=== PATIENT | male | born 1995 | race Caucasian/White ===

== ENCOUNTER 2025-09-06 09:07 | Inpatient (IN) | payer OTHER, SELFPAY ==
[2025-09-06] VITALS (8 sets, daily range): BP systolic 112–164; BP diastolic 72–87; PULSE 68–110; TEMP 37.1–37.7; O2SAT 96–98; BMI 46.5; BMI 45.1
--- NOTE | 2025-09-06 09:25 | ED_ITS ---
HPI HPI - General Adult General Chief complaint: Abdominal Pain Stated complaint: ABDOMINAL PAIN Time Seen by Provider: 09/06/25 09:16 Mode of arrival: walk-in History of Present Illness HPI narrative: 30-year-old male presented to the emergency department for nausea and vomiting and abdominal pain. He has been feeling this way for the past 2 days. He states that his stomach has been feeling off and he has been nauseous and had vomiting. No significant hematemesis. He has had minimal amounts of diarrhea without blood as well. No family members at home are ill and he has not been around any ill coworkers. Related Data Home Medications ?Medication ?Instructions ?Recorded ?Confirmed No Known Home Medications 09/06/2508/16 Allergies Allergy/AdvReac Type Severity Reaction Status Date / Time No Known Drug Allergies Allergy Verified 09/06/25 09:12 Review of Systems ROS Narrative A ten point review of systems is negative except as noted above. [facility] Medical History (Updated 09/06/25 @ 14:15 by Aileen Barroso MD) Gout ?M10.9 - Gout, unspecified (ICD-10) Gout ?M10.9 - Gout, unspecified (ICD-10) Social History Little interest or pleasure in doing things: not at all Feeling down, depressed, or hopeless: not at all Exam Narrative Exam Narrative: Nurses note and vital signs reviewed General:The patient appears in no apparent distress. Skin:Warm, dry, no pallor noted.There is no rash noted. Head:Normocephalic, atraumatic Eye: Normal conjunctiva, no drainage Ears, Nose, Mouth, and Throat: oral mucosa is moist. Nares patent. Cardiovascular:Regular Rate and Rhythm Respiratory:Patient is in no distress, no accessory muscle use, lungs are clear to auscultation, no wheezing, rales or rhonchi Back:non-tender GI: Obese, soft, nondistended. He has minimal tenderness down the central part of his abdomen. No rebound or guarding. No masses. Musculoskeletal: The patient has no evidence of calf tenderness, no pitting edema, symmetrical pulses noted bilaterally Neurological:A&O, normal speech Psychiatric:Cooperative Constitutional Vital Signs, click to edit/add: Last Vital Signs Temp 99.1 F 09/06/25 09:13 Pulse 95 H 09/06/25 13:27 Resp 16 09/06/25 13:27 BP 112/72 09/06/25 13:27 Pulse Ox 98 09/06/25 13:27 O2 Del Method Room Air 09/06/25 13:27 Course Vital Signs Vital signs: Vital Signs Temperature 99.1 F 09/06/25 09:13 Pulse Rate 110 H 09/06/25 09:13 Respiratory Rate 20 09/06/25 09:13 Blood Pressure 142/83 H 09/06/25 09:13 Pulse Oximetry 98 09/06/25 09:13 Oxygen Delivery Method Room Air 09/06/25 09:13 Temperature 99.1 F 09/06/25 09:13 Pulse Rate 95 H 09/06/25 13:27 Respiratory Rate 16 09/06/25 13:27 Blood Pressure 112/72 09/06/25 13:27 Pulse Oximetry 98 09/06/25 13:27 Oxygen Delivery Method Room Air 09/06/25 13:27 Medical Decision Making MDM Narrative Medical decision making narrative: Nephritis is found on CAT scan per radiologist. Case discussed with Dr. Barroso who recommended consultation with nephrology. I spoke to the internal salesperson at [facility] who recommends the patient be admitted here for IV antibiotics and monitoring of his creatinine. The internal salesperson suggest that this is most likely infectious. Treatment diagnosis and disposition were discussed with the patient. Differential Diagnosis Differential Diagnosis: Gastroenteritis, nephritis, pyelonephritis, UTI, dehydration Lab Data Lab results reviewed: Yes I reviewed the patient's lab results Labs: Lab Results 09/06/25 09/06/25 Range/Units 09:25 09:34 WBC 15.0 H (4.0-11.0) 10^3/uL RBC 4.80 (4.70-6.10) 10^6/uL Hgb 14.3 (14.0-18.0) g/dL Hct 41.8 L (42.0-54.0) % MCV 87.1 (80.0-94.0) fL MCH 29.8 (25.9-34.0) pg MCHC 34.2 (29.9-35.2) g/dL RDW 13.2 (11.0-15.0) % Plt Count 164 (150-450) 10^3/uL MPV 11.5 (9.5-13.5) fL Seg Neuts % (Manual) 59.0 (43.0-75.0) Band Neutrophils % 7.0 H (0-5) % Lymphocytes % (Manual) 15.0 L (20.5-60.0) % Monocytes % (Manual) 19.0 H (1.7-12.0) % Eosinophils % (Manual) 0.0 L (0.9-7.0) % Basophils % (Manual) 0.0 L (0.2-2.0) % Neutrophils # (Manual) 8.85 H (1.4-6.5) 10^3/uL Band Neutrophils # 1.1 H (0.0-0.3) 10^3/uL Lymphocytes # (Manual) 2.25 (1.20-3.80) 10^3/uL Monocytes # (Manual) 2.85 H (0.30-0.80) 10^3/uL Eosinophils # (Manual) 0.00 (0.00-0.70) 10^3/uL Basophils # (Manual) 0.00 (0.00-0.10) 10^3/uL Sodium 136 (136-145) mmol/L Potassium 3.9 (3.5-5.1) mmol/L Chloride 96 L (98-107) mmol/L Carbon Dioxide 28.3 (21.0-32.0) mmol/L Anion Gap 15.6 BUN 17.0 (7.0-18.0) mg/dL Creatinine 1.56 H (0.70-1.30) mg/dL Est GFR ( Amer) >60 (>=60 mL/min/1.73m^2) Est GFR (Non-Af Amer) 53 L (>=60 mL/min/1.73m^2) BUN/Creatinine Ratio 10.9 Glucose 114 H (74-106) mg/dL Calcium 9.8 (8.5-10.1) mg/dL Total Bilirubin 1.1 H (0.2-1.0) mg/dL Direct Bilirubin 0.3 H (0.0-0.2) mg/dL AST 18 (15-37) U/L ALT 35 (16-63) U/L Alkaline Phosphatase 91 (46-116) U/L Total Protein 8.4 H (6.4-8.2) g/dL Albumin 3.4 (3.4-5.0) g/dL Globulin 5.0 g/dL Albumin/Globulin Ratio 0.7 Amylase 27 (25-115) U/L Lipase 12.0 L (16.0-77.0) U/L Urine Color Lt. yellow (YELLOW) Urine Clarity Clear (CLEAR) Urine pH 7.5 (5.0-9.0) Ur Specific [place] 1.010 (1.005-1.025) Urine Protein 100 A (NEG/TRACE) mg/dL Urine Glucose (UA) Negative (NEGATIVE) mg/dL Urine Ketones Negative (NEGATIVE) mg/dL Urine Occult Blood Moderate A (NEGATIVE) Urine Nitrite Negative (NEGATIVE) Urine Bilirubin Negative (NEGATIVE) Urine Urobilinogen 4.0 A (0.2-1.0) EU/dL Ur Leukocyte Esterase Small A (NEGATIVE) Urine RBC 10-20 A (0-2) #/HPF Urine WBC 10-20 A (NONE SEEN) #/HPF Ur Squamous Epith Cells Rare (NONE/RARE) #/LPF Urine Crystals None seen (None Seen) #/HPF Urine Bacteria Small A (NONE SEEN) #/HPF Urine Casts None seen (NONE SEEN) #/LPF Urine Mucus None seen (NONE SEEN) Ur Culture Indicated? Yes-[facility] [place] Imaging Data CT scan - abdomen: Radiologist's impression: ITS Impressions Abdomen/Pelvis CT 09/06/25 10:25 IMPRESSION: There is heterogeneous cortical hypoenhancement of the renal cortices right greater than left suspicious for acute nephritis. There is accompanying perinephric fat stranding right greater than left. There is wall thickening and fat stranding along the bladder suggesting cystitis with edema along the proximal ureters. Impression dictated by: Ernie Claros M.D. 09/06/2025 12:55 PM Dictation Location: [place] [address] Electronically authenticated by: [id number] Y Date: 09/06/2025 12:55 Discharge Plan Discharge Chief Complaint: Abdominal Pain Clinical Impression: Nephritis Patient Disposition: Admitted as Observation Time of Disposition Decision: 14:11 Condition: Fair
[2025-09-06] MEDS: 0.9 % SODIUM CHLORIDE 1,000 ML 1000 ML IV ×3 (09:40→22:03)
[2025-09-06 09:42] LABS: Hematocrit 41.8 % (42.0-54.0); Hemoglobin 14.3 g/dL (14.0-18.0); Mean Corpuscular HGB Conc 34.2 g/dL (29.9-35.2); Mean Corpuscular Hemoglobin 29.8 pg (25.9-34.0); Mean Corpuscular Volume 87.1 fL (80.0-94.0); Platelet Count 164 10^3/uL (150-450); Red Blood Count 4.80 10^6/uL (4.70-6.10); White Blood Count 15.0 10^3/uL (4.0-11.0)
--- NOTE | 2025-09-06 09:48 | PC.NURSE ---
aware of need for UA, unable to go at this time.
[2025-09-06 10:00] LABS: Alanine Aminotransferase 35 U/L (16-63); Albumin Globulin Ratio 0.7; Albumin Level 3.4 g/dL (3.4-5.0); Alkaline Phosphatase 91 U/L (46-116); Amylase 27 U/L (25-115); Anion Gap 15.6; Aspartate Amino Transferase 18 U/L (15-37); Band Neutrophils Absolute 1.1 10^3/uL (0.0-0.3); Basophils Abs Manual 0.00 10^3/uL (0.00-0.10); Basophils Percent Manual 0.0 % (0.2-2.0); Blood Urea Nitrogen 17.0 mg/dL (7.0-18.0); Calcium 9.8 mg/dL (8.5-10.1); Carbon Dioxide 28.3 mmol/L (21.0-32.0); Chloride 96 mmol/L (98-107); Eosinophils Absolute Manual 0.00 10^3/uL (0.00-0.70); Eosinophils Percent Manual 0.0 % (0.9-7.0); Estimated GFR (African America >60 (>=60 mL/min/1.73m^2); Estimated GFR (Non-African Ame 53 (>=60 mL/min/1.73m^2); Globulin 5.0 g/dL; Glucose 114 mg/dL (74-106); Lipase 12.0 U/L (16.0-77.0); Lymphocytes Absolute Manual 2.25 10^3/uL (1.20-3.80); Lymphocytes Percent Manual 15.0 % (20.5-60.0); Monocytes Absolute Manual 2.85 10^3/uL (0.30-0.80); Monocytes Percent Manual 19.0 % (1.7-12.0); Potassium 3.9 mmol/L (3.5-5.1); Segmented Neut Absolute Manual 8.85 10^3/uL (1.4-6.5); Segmented Neutrophils % Manual 59.0 (43.0-75.0); Sodium 136 mmol/L (136-145); Total Protein 8.4 g/dL (6.4-8.2)
--- NOTE | 2025-09-06 10:25 | CT_ITS ---
[address] [address] Patient Name: AMELIA POLLARD MRN: [id number] date: 1995 Sex: M Assigned Patient Location: ER Current Patient Location: .[facility] Accession/Order Number: [id number] Exam Date: 09/06/2025 11:17 Report Date: 09/06/2025 12:55 At the request of: VINICIUS PAREKH MD Procedure: CT abdomen pelvis w con CT abdomen pelvis w con 09/06/2025 11:23 AM SIGNS AND SYMPTOMS: ^Diffuse abdominal pain, vomiting, fever TECHNIQUE: Multidetector ct axial images of the abdomen and pelvis were obtained with IV contrast. Multiplanar reformats were performed and reviewed to further define anatomy and possible pathology. CT was performed with one or more of the following dose reduction techniques: Automated exposure control, adjustment of the mA and/or kV according to patient size, or use of iterative reconstruction technique. COMPARISON: None. FINDINGS: Lower Chest: Within normal limits. ABDOMEN: Liver: Within normal limits. Bile Ducts: Normal caliber. Gallbladder: No calcified gallstones. Normal caliber wall. Pancreas: Within normal limits. Spleen: Within normal limits. Adrenals: Within normal limits. Kidneys: There is heterogeneous cortical hypoenhancement of the renal cortices right greater than left suspicious for acute nephritis. There is accompanying perinephric fat stranding right greater than left. Pelvis: Reproductive Organs: No pelvic masses. Ureters: Edema is noted along the ureters proximally. Bladder: There is bladder wall thickening with accompanying edema suggesting cystitis. Bowel: Normal caliber. There is a normal appendix in the right lower quadrant. Mesenteric Lymph Nodes: No enlarged mesenteric lymph nodes. Peritoneum: No ascites or free air, no fluid collection. Vessels: Atherosclerotic changes within normal limits Retroperitoneum: Within normal limits. Abdominal Wall: Within normal limits. Bones: Degenerative changes are noted in the thoracolumbar spine CT/CT abdomen pelvis w con IMPRESSION: There is heterogeneous cortical hypoenhancement of the renal cortices right greater than left suspicious for acute nephritis. There is accompanying perinephric fat stranding right greater than left. There is wall thickening and fat stranding along the bladder suggesting cystitis with edema along the proximal ureters. Impression dictated by: Ernie Claros M.D. 09/06/2025 12:55 PM Dictation Location: [place] [address] Electronically authenticated by: [id number] Y Date: 09/06/2025 12:55
[2025-09-06 10:29] LABS: Glucose Urine UA NEGATIVE (NEGATIVE)
[2025-09-06 10:37] LABS: Crystals Seen? None Seen #/HPF (None Seen)
[2025-09-06 10:38] LABS: Cast Seen? NONE SEEN #/LPF (NONE SEEN); Urine Culture Indicated YES-FRMC
[2025-09-06] MEDS: DICYCLOMINE HCL 20 MG/2 ML VIAL IM (10:53)
--- NOTE | 2025-09-06 14:14 | PM.IMHP1 ---
Internal Medicine - H&P: HPI History of Present Illness Chief complaint: ABDOMINAL PAIN Narrative: This is.-year-old male with no past medical history presents today with abdominal pain over the last 4 days. History obtained from the patient, ED staff, as well as chart review. Patient states that 4 days ago, he started having abdominal pain described as bloating and pressure later on became cramping which was coming and going, epigastric in location. He thought that this was all a stomach bug however he continued to have chills along with fatigue. The pain was nonradiating out of failure and not associated with certain activities and not aggravated by food and he does not recall any relieving factors. He did report having chills with a fever 100.3 at home. He denies any diarrhea but states that he has nausea and dry heaving and he had to drink water to kind of lubricate his dry heaving. He did have multiple episodes of vomiting as well. He decided to come to the ED today because of the worsening symptoms. He denies to me any dysuria or burning urination or hematuria or flank pain. Denies any diarrhea. Here in the ED, patient met sepsis criteria with tachycardia as well as leukocytosis and UA was positive. CRP was 36. Lactic acid was normal. He was only tachycardic but he was not hypotensive. He was not febrile and he was saturating 98% on room air. CMP showed BUN of [address] abdomen pelvis with contrast showed heterogeneous cortical hypoenhancement of the renal cortices right greater than left suspicious for acute nephritis complaining perinephric fat stranding right greater than left. Wall thickening and fat stranding along the bladder suggesting cystitis with edema along the proximal ureters ED reach out to nephrology at [facility] who cleared the patient to be admitted here to [facility] and believe that this more of an infectious etiology patient to be admitted under hospital service for further workup and management Review of Systems ROS Status of ROS 10 or more systems reviewed and unremarkable except as noted in history and below [facility] Medical History (Updated 09/06/25 @ 14:15 by Aileen Barroso MD) Gout ?M10.9 - Gout, unspecified (ICD-10) Gout ?M10.9 - Gout, unspecified (ICD-10) Social History Little interest or pleasure in doing things: not at all Feeling down, depressed, or hopeless: not at all Meds Home Medications and Allergies Home Medications ?Medication ?Instructions ?Recorded ?Confirmed ?Type No Known Home Medications 09/06/25 09/06/25 History Allergies Allergy/AdvReac Type Severity Reaction Status Date / Time No Known Drug Allergies Allergy Verified 09/06/25 09:12 Exam Narrative Exam Narrative: General:The patient appears in no apparent distress. He is pleasant and cooperative. Skin:Warm, dry, no pallor noted.There is no rash noted. Head:Normocephalic, atraumatic Eye: Normal conjunctiva, no drainage Cardiovascular:Regular Rate and Rhythm, normal S1-S2, no murmurs Respiratory:Patient is in no distress, no accessory muscle use, lungs are clear to auscultation, no wheezing, rales or rhonchi Back:non-tender GI: Obese, soft, nondistended. Epigastric tenderness is noted. No rebound or guarding. No masses. No signs of acute abdomen. There is no CVA tenderness bilaterally Musculoskeletal: The patient has no evidence of calf tenderness, no pitting edema, symmetrical pulses noted bilaterally Neurological:A&O, normal speech Constitutional Vital Signs, click to edit/add: Last Vital Signs Temp 99.1 F 09/06/25 09:13 Pulse 95 H 09/06/25 13:27 Resp 16 09/06/25 13:27 BP 112/72 09/06/25 13:27 Pulse Ox 98 09/06/25 13:27 O2 Del Method Room Air 09/06/25 13:27 Internal Medicine - H&P: Reslt Labs Labs: Short CBC 09/06/25 Range/Units 09:34 WBC 15.0 H (4.0-11.0) 10^3/uL Hgb 14.3 (14.0-18.0) g/dL Hct 41.8 L (42.0-54.0) % Plt Count 164 (150-450) 10^3/uL BMP 09/06/25 09:34 Sodium 136 Potassium 3.9 Chloride 96 L Carbon Dioxide 28.3 BUN 17.0 Creatinine 1.56 H Glucose 114 H Calcium 9.8 Liver Function 09/06/25 Range/Units 09:34 Total Bilirubin 1.1 H (0.2-1.0) mg/dL Direct Bilirubin 0.3 H (0.0-0.2) mg/dL AST 18 (15-37) U/L ALT 35 (16-63) U/L Alkaline Phosphatase 91 (46-116) U/L Albumin 3.4 (3.4-5.0) g/dL Urine 09/06/25 Range/Units 09:25 Urine Color Lt. yellow (YELLOW) Urine Clarity Clear (CLEAR) Urine pH 7.5 (5.0-9.0) Ur Specific [place] 1.010 (1.005-1.025) Urine Protein 100 A (NEG/TRACE) mg/dL Urine Glucose (UA) Negative (NEGATIVE) mg/dL Assessment and Plan Assessment and Plan (1) Nephritis: (2) Sepsis: Plan Sepsis secondary to Nephritis, inability to tolerate PO antibiotics, needing IV antibiotics [place] in the setting of hypoperfusion from sepsis and pre-renal azotemia/Dehydration from decreased oral intake and vomiting -Admit pt to medical floor with telemetry -Start Ceftriaxone 2 grams q24 hours IV -Adjust antibiotics according to urine and blood cultures -Tylenol 650 mg po q8hrs PRN for pain -Compazine 5 mg q6hrs prn for nausea/vomiting -Full code -HSQ for DVT PPx -I ordered another 1 liter NS bolus, then will start pt on LR 100 ml/hr for a total of 1 liter -I ordered EKG and CXR -Discussed the plan with the pt, answered his questions
--- NOTE | 2025-09-06 14:17 | ECG_ITS ---
[facility] Test Date: 2025-09-06 Pat Name: AMELIA POLLARD Department: Room: 2201 Gender: Male Paster Operator: : 1995 Requested By: [id number] Order Number: [id number] Cynthia MD: BETO LAGUERRE M.D. Measurements Intervals [place] Rate: 86 P: 51 CO: 163 QRS: 40 QRSD: 94 T: 48 QT: 338 QTc: 406 Interpretive Statements SINUS RHYTHM POSSIBLE LEFT ATRIAL ENLARGEMENT [-0.1mV P WAVE IN V1/V2] POSSIBLE RIGHT VENTRICULAR CONDUCTION DELAY [RSR (QR) IN V1/V2] Borderline ECG No previous ECG available for comparison Electronically Signed On 09-07-2025 12:24:23 EDT by BETO LAGUERRE M.D.
[2025-09-06 14:37] LABS: Lactate/Lactic Acid 1.5 mmol/L (0.4-2.0)
[2025-09-06] MEDS: ACETAMINOPHEN 325 MG TABLET 650 MG PO (20:15)
--- OUTSIDE RECORDS SUMMARY | 2025-09-06 20:34 | XMS_ITS | Continuity of Care Document ---
Author Organization [facility] Address [address] [place] [address] Phone Care Team Providers Care Retoucher Photoengraving Name Role Phone Praveen Monsalve DO Attending Provider Care Teams Patient Care Team Team Status: Inactive Member Role/Relationship Status Dates Praveen Monsalve DO Attending Provider Active S tart: September 06, 2025 End: September 06, 2025 Chief Complaint and Reason for Visit Chief Complaint Admit Date Unknown September 06, 2025 9 :25am Social History Smoking Status Unknown if ever smoked Observation Status Observation Response Date of Response Legal Sex Male (finding) Sex Assigned At 1994 Procedures Procedure Date Performed Status Urine Culture September 06, 2025 active Advance Directives Advance Directive Response Recorded Date/ Time Advance Directives No March 21, 2018 3:09pm Insurance Providers Guarantor Garfield Roblespkins Address [address] [place] [phone] Info.Home Phone: Payer Group Member ID Coverage Type Subscriber Relationship to Subscriber Effective Date Expiration Date Remedios MCNAMARA Id: [id number] chapito Id: [id number] [facility] [place] [address] Home Phone: Encounters Encounter Location(s) Arrival/Admit Date Discharge/Departure Date Discharge/Departure Disposition Provider(s) Departed Referred -[facility] September 06, 2025 9:25am September 06, 2025 9:26am Discharged to home care or self care (routine discharge) Praveen Katko , D DO Plan of Treatment Future Tests Future scheduled test information is unavailable Pending Tests Test Name Ordered Date Scheduled Date Urine Culture September 06, 2025 9:25am Future Visits Future appointment information is unavailable Future Procedures Procedure Name Ordered Date Scheduled Date Urine Culture September 06, 2025 12:27pm Octob er 2024 9:25am Future Medications Future medication information is unavailable Patient Instructions Patient instructions are unavailable
[2025-09-06] MEDS: HYDROMORPHONE HCL 1 MG/ML CARTRIDGE 0.5 MG IVP (23:51)
[2025-09-07] VITALS (8 sets, daily range): BP systolic 107–162; BP diastolic 77–99; PULSE 86–99; TEMP 37.1–39; O2SAT 94–98
[2025-09-07] MEDS: ACETAMINOPHEN 325 MG TABLET 650 MG PO ×3 (04:15→20:37)
[2025-09-07 05:53] LABS: Hematocrit 37.3 % (42.0-54.0); Hemoglobin 12.6 g/dL (14.0-18.0); Immature Granulocytes Abs Auto 0.10 10^3/uL (0.00-0.03); Immature Granulocytes Pct Auto 0.8 % (0.0-0.5); Lymphocytes Absolute Auto 1.3 10^3/uL (1.2-3.8); Mean Corpuscular HGB Conc 33.8 g/dL (29.9-35.2); Mean Corpuscular Hemoglobin 29.6 pg (25.9-34.0); Mean Corpuscular Volume 87.6 fL (80.0-94.0); Platelet Count 151 10^3/uL (150-450); Red Blood Count 4.26 10^6/uL (4.70-6.10); White Blood Count 12.4 10^3/uL (4.0-11.0)
[2025-09-07 06:12] LABS: Alanine Aminotransferase 44 U/L (16-63); Albumin Globulin Ratio 0.6; Albumin Level 2.7 g/dL (3.4-5.0); Alkaline Phosphatase 86 U/L (46-116); Anion Gap 15.4; Aspartate Amino Transferase 17 U/L (15-37); Blood Urea Nitrogen 18.0 mg/dL (7.0-18.0); Calcium 8.5 mg/dL (8.5-10.1); Carbon Dioxide 23.8 mmol/L (21.0-32.0); Chloride 99 mmol/L (98-107); Estimated GFR (African America >60 (>=60 mL/min/1.73m^2); Estimated GFR (Non-African Ame 59 (>=60 mL/min/1.73m^2); Globulin 4.5 g/dL; Glucose 121 mg/dL (74-106); Magnesium 1.9 mg/dL (1.8-2.4); Potassium 3.2 mmol/L (3.5-5.1); Sodium 135 mmol/L (136-145); Total Protein 7.2 g/dL (6.4-8.2)
[2025-09-07] MEDS: HYDROMORPHONE HCL 1 MG/ML CARTRIDGE 0.5 MG IVP (06:34)
[2025-09-07] MEDS: HEPARIN SODIUM (PORCINE) 5,000 UNIT/ML VIAL 5000 UNIT SUBQ ×2 (08:28→20:37)
--- NOTE | 2025-09-07 10:10 | CM.NOTE ---
Rounds made with Dr. Pedro, pt inpatient status. Discussed with pt diagnosis, lab work and plan of care.
[2025-09-07] MEDS: 0.9 % SODIUM CHLORIDE 250 ML 10 ML IV (10:56)
--- NOTE | 2025-09-07 12:24 | PM.PN ---
Progress Note: Subjective Subjective Interval history: Patient was seen and evaluated at bedside, he reports feeling better today however he did have a fever 100.4 F earlier this morning, WBC slightly downtrending. Reports that his appetite is coming back now and feeling a bit better and able to keep stuff down. Remains on IV antibiotics. Pending cultures. Exam Narrative Exam Narrative: Const General: cooperative HEENT Normal oropharyngeal mucosa without any ulcers or exudates Eyes: Conjunctiva normal Pulmonary Auscultation: clear to auscultation , no crackles, no wheezes Cardiovascular Rate: normal rate Rhythm: regular rhythm Heart Sounds: S1 normal, S2 normal and no murmurs GI Inspection: non-distended Palpation: soft, not firm and nontender. No rigidity or rebound. Deferred Neuro General: alert, awake and oriented x3. No obvious new focal deficit Musculoskeletal: normal range of motion Extrem General: no cyanosis, no pedal edema Psych Appearance: appropriate affect. Grossly normal Constitutional Vital Signs, click to edit/add: Last Vital Signs Temp 98.8 F 09/07/25 08:33 Pulse 99 H 09/07/25 08:33 Resp 16 09/07/25 03:58 BP 155/96 H 09/07/25 08:33 Pulse Ox 95 09/07/25 08:33 O2 Del Method Room Air 09/07/25 08:33 Progress Note: Objective Labs Labs: Short CBC 09/07/25 Range/Units 05:23 WBC 12.4 H (4.0-11.0) 10^3/uL Hgb 12.6 L (14.0-18.0) g/dL Hct 37.3 L (42.0-54.0) % Plt Count 151 (150-450) 10^3/uL BMP 09/07/25 05:23 Sodium 135 L Potassium 3.2 L Chloride 99 Carbon Dioxide 23.8 BUN 18.0 Creatinine 1.42 H Glucose 121 H Calcium 8.5 Liver Function 09/07/25 Range/Units 05:23 Total Bilirubin 0.8 (0.2-1.0) mg/dL AST 17 (15-37) U/L ALT 44 (16-63) U/L Alkaline Phosphatase 86 (46-116) U/L Albumin 2.7 L (3.4-5.0) g/dL Progress Note: A&P Assessment and Plan (1) Nephritis: (2) Sepsis: Plan Sepsis secondary to acute pyelonephritis, inability to tolerate PO antibiotics, needing IV antibiotics L[place]ORE in the setting of hypoperfusion from sepsis and pre-renal azotemia/volume depletion from decreased oral intake and vomiting - Still febrile this a.m., WBC slightly downtrending -Continue ceftriaxone 2 g IV every 24 hours - Pending final cultures urine and blood -Would continue further IV hydration as directed with LR ? Pain control and antiemetics as needed as directed -DVT prophylaxis as directed Discussed with patient at bedside, all question answered, patient in agreement with above plan
[2025-09-07] MEDS: PROCHLORPERAZINE 10 MG/2 ML VIAL 5 MG IV (16:10)
[2025-09-07] MEDS: POTASSIUM CHLORIDE 10 MEQ ER TABLET 30 MEQ PO (20:37)
[2025-09-08] MEDS: PROCHLORPERAZINE 10 MG/2 ML VIAL 5 MG IV (01:17)
[2025-09-08 03:58] VITALS: BP 161/99; PULSE 99; TEMP 37.2; O2SAT 96
[2025-09-08 06:39] LABS: Hematocrit 36.4 % (42.0-54.0); Hemoglobin 12.2 g/dL (14.0-18.0); Immature Granulocytes Abs Auto 0.18 10^3/uL (0.00-0.03); Immature Granulocytes Pct Auto 1.5 % (0.0-0.5); Lymphocytes Absolute Auto 1.9 10^3/uL (1.2-3.8); Mean Corpuscular HGB Conc 33.5 g/dL (29.9-35.2); Mean Corpuscular Hemoglobin 29.5 pg (25.9-34.0); Mean Corpuscular Volume 87.9 fL (80.0-94.0); Platelet Count 167 10^3/uL (150-450); Red Blood Count 4.14 10^6/uL (4.70-6.10); White Blood Count 11.7 10^3/uL (4.0-11.0)
[2025-09-08 06:41] LABS: Anion Gap 13.8; Blood Urea Nitrogen 14.0 mg/dL (7.0-18.0); Calcium 8.7 mg/dL (8.5-10.1); Carbon Dioxide 26.0 mmol/L (21.0-32.0); Chloride 103 mmol/L (98-107); Estimated GFR (African America >60 (>=60 mL/min/1.73m^2); Estimated GFR (Non-African Ame >60 (>=60 mL/min/1.73m^2); Glucose 97 mg/dL (74-106); Magnesium 2.2 mg/dL (1.8-2.4); Potassium 3.8 mmol/L (3.5-5.1); Sodium 139 mmol/L (136-145)
[2025-09-08 07:44] VITALS: BP 145/83; PULSE 90; TEMP 36.6; O2SAT 97
[2025-09-08] MEDS: HEPARIN SODIUM (PORCINE) 5,000 UNIT/ML VIAL 5000 UNIT SUBQ ×2 (08:25→20:59)
--- NOTE | 2025-09-08 10:20 | P.IMPN_ITS ---
Progress Note: A&P Assessment and Plan (1) Nephritis: (2) Sepsis: Qualifiers: Sepsis type: sepsis due to unspecified organism Plan Sepsis secondary to acute pyelonephritis, inability to tolerate PO antibiotics, needing IV antibiotics L[place] in the setting of hypoperfusion from sepsis and pre-renal azotemia/volume depletion from decreased oral intake and vomiting - Still febrile past 24 hours, however WBC and symptoms continue to improve -Continue ceftriaxone 2 g IV every 24 hours - Awaiting final cultures urine and blood, if afebrile tomorrow am will plan to d/c with 5 day course levofloxacin for pyelonephritis and urology follow up -Would continue further IV hydration as directed with LR ? Pain control and antiemetics as needed as directed -DVT prophylaxis as directed Discussed with patient at bedside, all question answered, patient in agreement with above plan Internal Medicine - PN: Subj Subjective Interval history: Feels back to baseline, no abdominal pain and able to eat. Did spike high grade fevers overnight, Tmax 24 hours 102 F Exam Narrative Exam Narrative: General: cooperative and tired appearing Orientation: alert, awake and oriented x3 Head: normal to inspection Neck: normal visual inspection Cardio: no JVD, regular rate, regular rhythm Chest palpation & inspection: normal inspection of the chest Resp Effort & Inspection: normal respiratory effort Abd: soft, non-tender, non-distended Extremities: Warm well perfused, no edema Constitutional Vital Signs, click to edit/add: Last Vital Signs Temp 98 F 09/08/25 07:44 Pulse 90 09/08/25 07:44 Resp 20 09/08/25 07:44 BP 145/83 H 09/08/25 07:44 Pulse Ox 97 09/08/25 07:44 O2 Del Method Room Air 09/08/25 07:44 Internal Medicine - PN: Obj Da Labs Labs: Laboratory Results - last 24 hr 09/08/25 05:57 WBC 11.7 H RBC 4.14 L Hgb 12.2 L Hct 36.4 L MCV 87.9 MCH 29.5 MCHC 33.5 RDW 13.6 Plt Count 167 MPV 12.3 Neut % (Auto) 64.5 Lymph % (Auto) 15.9 L [place] % (Auto) 16.7 H Eos % (Auto) 0.9 Baso % (Auto) 0.5 Neut # (Auto) 7.6 H Lymph # (Auto) 1.9 [place] # (Auto) 2.0 H Eos # (Auto) 0.1 Baso # (Auto) 0.1 Abs Immat Gran (auto) 0.18 H Imm/Tot Granulo (auto) 1.5 H Sodium 139 Potassium 3.8 Chloride 103 Carbon Dioxide 26.0 Anion Gap 13.8 BUN 14.0 Creatinine 1.31 H Est GFR ( Amer) >60 Est GFR (Non-Af Amer) >60 BUN/Creatinine Ratio 10.7 Glucose 97 Calcium 8.7 Magnesium 2.2
[2025-09-08 15:24] VITALS: BP 156/97; PULSE 96; TEMP 36.9; O2SAT 97
[2025-09-08 20:00] VITALS: BP 160/90; PULSE 106; TEMP 36.8; O2SAT 97
[2025-09-09] VITALS: BP 166/110; PULSE 108; TEMP 37; O2SAT 97
[2025-09-09] MEDS: METOPROLOL TARTRATE 25 MG TABLET PO ×2 (01:38→08:15)
[2025-09-09 03:52] VITALS: BP 159/91; PULSE 84; TEMP 36.9; O2SAT 96
[2025-09-09 07:14] VITALS: BP 132/86; PULSE 82; TEMP 37.1; O2SAT 97
[2025-09-09] MEDS: HEPARIN SODIUM (PORCINE) 5,000 UNIT/ML VIAL 5000 UNIT SUBQ (08:14)
[2025-09-09 11:10] LABS: Hematocrit 40.0 % (42.0-54.0); Hemoglobin 13.3 g/dL (14.0-18.0); Mean Corpuscular HGB Conc 33.3 g/dL (29.9-35.2); Mean Corpuscular Hemoglobin 29.4 pg (25.9-34.0); Mean Corpuscular Volume 88.5 fL (80.0-94.0); Platelet Count 195 10^3/uL (150-450); Red Blood Count 4.52 10^6/uL (4.70-6.10); White Blood Count 11.8 10^3/uL (4.0-11.0)
[2025-09-09 11:24] LABS: Anion Gap 11.5; Blood Urea Nitrogen 20.0 mg/dL (7.0-18.0); Calcium 9.1 mg/dL (8.5-10.1); Carbon Dioxide 29.1 mmol/L (21.0-32.0); Chloride 103 mmol/L (98-107); Estimated GFR (African America >60 (>=60 mL/min/1.73m^2); Estimated GFR (Non-African Ame 60 (>=60 mL/min/1.73m^2); Glucose 106 mg/dL (74-106); Potassium 3.6 mmol/L (3.5-5.1); Sodium 140 mmol/L (136-145)
[2025-09-09 12:03] LABS: Atypical Lymphocytes % Manual 3.0 %; Atypical Lymphocytes Abs Man 0.35; Basophils Abs Manual 0.00 10^3/uL (0.00-0.10); Basophils Percent Manual 0.0 % (0.2-2.0); Eosinophils Absolute Manual 0.11 10^3/uL (0.00-0.70); Eosinophils Percent Manual 1.0 % (0.9-7.0); Lymphocytes Absolute Manual 3.06 10^3/uL (1.20-3.80); Lymphocytes Percent Manual 26.0 % (20.5-60.0); Monocytes Absolute Manual 1.18 10^3/uL (0.30-0.80); Monocytes Percent Manual 10.0 % (1.7-12.0); Segmented Neut Absolute Manual 7.08 10^3/uL (1.4-6.5); Segmented Neutrophils % Manual 60.0 (43.0-75.0)
--- NOTE | 2025-09-09 12:24 | P.DS_ITS ---
DS: Providers Provider Date of admission: 09/06/25 18:42 Primary care physician: Non-Staff PhysicianMD Admitting clinician: Aileen Barroso Attending physician on admission: Aileen Barroso Attending physician on discharge: MARIETTA CRUZ Discharging clinician: MARIETTA CRUZ Anticipated date of discharge: 09/09/25 DS: Diagnosis Discharge Diagnosis (1) Nephritis: (2) Sepsis: Qualifiers: Sepsis type: sepsis due to unspecified organism Plan acute pyelonephritis DS: Summary Hospital Course Hospital Course: Garfield Uriarte is a 30 year-old male with no past medical history presents 09/06/25 with abdominal pain over the last 4 days. History obtained from the patient, ED staff, as well as chart review. Patient states that 4 days ago, he started having abdominal pain described as bloating and pressure later on became cramping which was coming and going, epigastric in location. He did report having chills with a fever 100.3 at home, found to have elevated WBC count and pyelonephritis on imaging. Symptoms improved with rocephin 2 g daily, urine culture resuled pansensitive E.coli, discharged with additonal 4 days of antibiotics, levofloxacin 750 mg daily and referral to outpatient urology. Time Spent with Patient Time attestation: Total time spent providing and/or coordinating discharge services: Exam Narrative Exam Narrative: General: cooperative and tired appearing Orientation: alert, awake and oriented x3 Head: normal to inspection Neck: normal visual inspection Cardio: no JVD, regular rate, regular rhythm Chest palpation & inspection: normal inspection of the chest Resp Effort & Inspection: normal respiratory effort Abd: soft, non-tender, non-distended Extremities: Warm well perfused, no edema Constitutional Vital Signs, click to edit/add: Last Vital Signs Temp 98.7 F 09/09/25 07:14 Pulse 82 09/09/25 07:14 Resp 20 09/09/25 07:14 BP 132/86 09/09/25 07:14 Pulse Ox 97 09/09/25 07:14 O2 Del Method Room Air 09/09/25 07:14 DS: Data Data Completed and Pending Labs on day of discharge: Labs from last 24 hours 09/09/25 10:45 WBC 11.8 H RBC 4.52 L Hgb 13.3 L Hct 40.0 L MCV 88.5 MCH 29.4 MCHC 33.3 RDW 13.6 Plt Count 195 MPV 12.2 Seg Neuts % (Manual) 60.0 Lymphocytes % (Manual) 26.0 Atypical Lymphs % (Man) 3.0 Monocytes % (Manual) 10.0 Eosinophils % (Manual) 1.0 Basophils % (Manual) 0.0 L Neutrophils # (Manual) 7.08 H Lymphocytes # (Manual) 3.06 Abs Atypical Lymphs Man 0.35 Monocytes # (Manual) 1.18 H Eosinophils # (Manual) 0.11 Basophils # (Manual) 0.00 Sodium 140 Potassium 3.6 Chloride 103 Carbon Dioxide 29.1 Anion Gap 11.5 BUN 20.0 H Creatinine 1.39 H Est GFR ( Amer) >60 Est GFR (Non-Af Amer) 60 BUN/Creatinine Ratio 14.4 Glucose 106 Calcium 9.1 Preliminary micro results at discharge 09/06/25 14:28 Blood Culture Result 2 - Preliminary Blood - Right Forearm NO GROWTH AT 36-48 HOURS. FINAL TO FOLLOW. 09/06/25 14:21 Blood Culture Result 1 - Preliminary Blood - Left Antecubital NO GROWTH AT 36-48 HOURS. FINAL TO FOLLOW. Discharge Plan Discharge Disposition: Home, Self-Care Condition: Fair Discharge Medications: New levofloxacin 750 mg tablet 750 mg PO DAILY 4 Days Qty: 4 0RF Outpatient Diagnostics: Basic Metabolic Panel (ONCE) Timeframe: [id number] Facility: [facility] - Location: Patient Own Location Ordered By: MARIETTA CRUZ Print Language: Macedonian Patient Instructions: Levofloxacin (By mouth), Dehydration (DC), Urinary Tract Infection in Men (DC), Gastroenteritis (DC) Activity Restrictions/Additional Instructions: - Blood work has been ordered to recheck your kidney function in 1 week, this can be followed up by Dr. Muñoz (please establish appointment as soon as possible) - Please return to the ER if your have additional fevers, chills, abdominal pain , blood in urine, or reduced/stopped urination. Forms: Portal Instructions Referrals: Mike Bennett MD [Physician, Urology] Referral Note: Pyelonephritis without stone in male Follow Up Appointments: Has no PCP currently (previously had DR Matamoros who moved out of town) Pt states will try to get in with 's PCP DR Muñoz [phone] Call [facility] for follow up UTI [phone] Discharge Date/Time: 09/09/25 12:30
--- NOTE | 2025-09-10 09:44 | PC.NURSE ---
follow up appt. with Dr. Muñoz 09/13 @ 9am [facility] will contact the patient to make an appt.
--- NOTE | 2025-09-11 13:04 | CM.NOTE ---
Order for f/u BMP faxed to lab, called pt to update that order has been sent to lab for repeat blood work.
--- NOTE | 2025-09-11 15:24 | CM.NOTE ---
CM attempted to call pt and regarding f/u lab work ordered at discharge. Lab order was sent to lab for scheduled lab work on Sep 16. Will attempt to call on 09/12.
--- NOTE | 2025-09-12 12:50 | CM.DCFOLLOWU ---
3rd attempt 09/12, no answer
--- NOTE | 2025-09-12 12:51 | SWNOTE1 ---
SW attempted to call pt and in regards to follow up lab work. No answer, voicemail left on pt's voicemail. SW did request they call us back and let us know they received message.
== END 2025-09-09 12:30 | disposition home or self-care (01) | DRG 872 ==
LOC: ER 14:42 → MS 09-07 08:18
PROVIDERS: Student in an Organized Health Care Education/Training Program; Admitting Provider Student in an Organized Health Care Education/Training Program; Emergency Provider Emergency Medicine; Visit Provider Internal Medicine
DX: A41.9 Sepsis, unspecified organism (principal); N10 Acute pyelonephritis; N17.9 Acute kidney failure, unspecified; Z68.42 Body mass index [BMI] 45.0-49.9, adult; R65.20 Severe sepsis without septic shock; E86.0 Dehydration; N05.9 Unspecified nephritic syndrome with unspecified morphologic changes; R50.9 Fever, unspecified; B96.20 Unspecified Escherichia coli [E. coli] as the cause of diseases classified elsewhere; E66.9 Obesity, unspecified
CPT/HCPCS: 36415; 74177; 80048; 80053; 80076; 81001; 82150; 83605; 83690; 83735; 85007; 85025; 85027; 86140; 87040; 87045; 87046; 87086; 87088; 87186; 87427; 93005; 96361; 96365; 96372; 96375; 99285; 99406; J0500; J0696; J0780; J1171; J1644; J2405; Q9967

== ENCOUNTER 2025-09-24 16:08 | Outpatient (OUT) | payer OTHER, SELFPAY ==
[2025-09-24 16:45] LABS: Hematocrit 41.0 % (42.0-54.0); Hemoglobin 13.8 g/dL (14.0-18.0); Mean Corpuscular HGB Conc 33.7 g/dL (29.9-35.2); Mean Corpuscular Hemoglobin 29.8 pg (25.9-34.0); Mean Corpuscular Volume 88.6 fL (80.0-94.0); Platelet Count 280 10^3/uL (150-450); Red Blood Count 4.63 10^6/uL (4.70-6.10); White Blood Count 16.6 10^3/uL (4.0-11.0)
[2025-09-24 17:14] LABS: Atypical Lymphocytes % Manual 2.0 %; Atypical Lymphocytes Abs Man 0.33; Band Neutrophils Absolute 0.2 10^3/uL (0.0-0.3); Basophils Abs Manual 0.00 10^3/uL (0.00-0.10); Basophils Percent Manual 0.0 % (0.2-2.0); Eosinophils Absolute Manual 0.16 10^3/uL (0.00-0.70); Eosinophils Percent Manual 1.0 % (0.9-7.0); Lymphocytes Absolute Manual 5.14 10^3/uL (1.20-3.80); Lymphocytes Percent Manual 31.0 % (20.5-60.0); Monocytes Absolute Manual 1.16 10^3/uL (0.30-0.80); Monocytes Percent Manual 7.0 % (1.7-12.0); Segmented Neut Absolute Manual 9.62 10^3/uL (1.4-6.5); Segmented Neutrophils % Manual 58.0 (43.0-75.0)
[2025-09-24 17:20] LABS: Alanine Aminotransferase 55 U/L (16-63); Albumin Globulin Ratio 1.1; Albumin Level 4.1 g/dL (3.4-5.0); Alkaline Phosphatase 90 U/L (46-116); Anion Gap 13.7; Aspartate Amino Transferase 19 U/L (15-37); Blood Urea Nitrogen 17.0 mg/dL (7.0-18.0); Calcium 9.3 mg/dL (8.5-10.1); Carbon Dioxide 28.1 mmol/L (21.0-32.0); Chloride 99 mmol/L (98-107); Cholesterol 218 mg/dL (<=200); Estimated GFR (African America >60 (>=60 mL/min/1.73m^2); Estimated GFR (Non-African Ame >60 (>=60 mL/min/1.73m^2); Free T3 3.12 pg/mL (2.18-3.98); Globulin 3.7 g/dL; Glucose 92 mg/dL (74-106); HDL Cholesterol 52 mg/dL (40-60); Potassium 3.8 mmol/L (3.5-5.1); Sodium 137 mmol/L (136-145); Thyroid Stimulating Hormone 3.665 uIU/mL (0.358-3.740); Total Protein 7.8 g/dL (6.4-8.2); Triglycerides 160 mg/dL (<=150); Uric Acid 6.9 mg/dL (3.5-7.2); VLDL CHOLESTEROL 32.0 mg/dL
== END 2025-09-24 16:09 | disposition home or self-care (01) ==
LOC: LAB 16:09
PROVIDERS: PCP Family Medicine; Visit Provider Family Medicine
DX: Z00.00 Encounter for general adult medical examination without abnormal findings (principal); N20.0 Calculus of kidney
CPT/HCPCS: 36415; 76775; 80053; 80061; 83036; 83525; 84436; 84443; 84481; 84550; 85007; 85027

== ENCOUNTER 2025-09-24 16:44 | Outpatient (OUT) | payer OTHER, SELFPAY ==
--- NOTE | 2025-09-24 16:47 | US_ITS ---
The [address] [address] Patient Name: AMELIA POLLARD MRN: [id number] date: 1995 Sex: M Assigned Patient Location: [place] Current Patient Location: Accession/Order Number: [id number] Exam Date: 09/24/2025 16:54 Report Date: 09/25/2025 08:45 At the request of: [employer] Procedure: US renal BI BILATERAL RENAL AND BLADDER ULTRASOUND CLINICAL HISTORY: Recent urinary tract infection. History of kidney stones. N20.0 COMPARISON: CT 09/06/2025 Estimation of renal size is approximately 10.4 cm on the right and 11.4 cm on the left. No shadowing calculi or hydronephrosis are identified. No renal mass lesions were imaged. There is no perinephric fluid. The urinary bladder is partially distended with a volume of 149 mL. No contour or intraluminal abnormalities are seen. US/US renal BI IMPRESSION: NO OBSTRUCTIVE UROPATHY. Impression dictated by: Rachael Castro M.D. 09/25/2025 8:45 AM Dictation Location: [place] [address] Electronically authenticated by: [id number] Y Date: 09/25/2025 08:45
== END 2025-09-24 16:45 | disposition home or self-care (01) ==
LOC: US 16:44
PROVIDERS: PCP Family Medicine; Visit Provider Nurse Practitioner
DX: N20.0 Calculus of kidney (principal)
CPT/HCPCS: 76775